=== PATIENT | female | born 1970 | race Caucasian/White ===

== ENCOUNTER 2025-02-03 07:00 | Day surgery (SDC) | payer BC ==
[2025-02-03] MEDS ORDERED: fentaNYL 50 MCG/ML SDV ONE (07:19)
[2025-02-03] MEDS ORDERED: Midazolam 1 MG/ML 2 ML SDV ONE (07:19)
[2025-02-03] MEDS ORDERED: Propofol 200 MG/20 ML SDV ONE (07:19)
[2025-02-03] MEDS: Lactated Ringers 1,000 ML IV SCH (07:43)
== END 2025-02-03 10:23 | disposition home or self-care (01) ==
LOC: JP.SDS 07:00
PROVIDERS: ATTEND Surgery
DX: Z12.11 Encounter for screening for malignant neoplasm of colon (principal); D12.3 Benign neoplasm of transverse colon; D12.5 Benign neoplasm of sigmoid colon; I12.9 Hypertensive chronic kidney disease with stage 1 through stage 4 chronic kidney disease, or unspecified chronic kidney disease; E11.22 Type 2 diabetes mellitus with diabetic chronic kidney disease; N18.30 Chronic kidney disease, stage 3 unspecified; E66.9 Obesity, unspecified; Z88.0 Allergy status to penicillin
CPT/HCPCS: 00811-QZ; 88305; J2250; J2704; J3010; J7120